=== PATIENT | male | born 1955 | race Caucasian/White ===

== ENCOUNTER 2017-06-22 15:59 | Inpatient (IN) | payer OTHER ==
[~2017-06-22] VITALS: Ht 177.8 cm; Wt 82.0 kg
[~2017-06-22 15:59] MED LIST: CARAS PO; GABA300C16 PO; GLIM2TAB PO; LACT20SO12 PO; METF1000 PO; METO10TA96 PO; OMEP20CA16 PO; PROP10TA6 PO
[2017-06-22] MEDS ORDERED: NITROGLYCERIN 2% 1 GM OINT PKT TD STA (16:10)
[2017-06-22 16:15] VITALS: Ht 177.8 cm; Wt 82.0 kg
[2017-06-22] MEDS ORDERED: NITROGLYCERIN (SL) 0.4 MG TAB SL PRN ×2 (16:30→18:00)
[2017-06-22 16:46] LABS: HEMATOCRIT 36.4 % (42.0-52.0); HEMOGLOBIN 12.6 g/dl (14.0-18.0); MEAN CORPUSCULAR HEMOGLOBIN 32.3 pg (29.0-33.0); MEAN CORPUSCULAR HGB CONC 34.6 g/dl (32.0-37.0); MEAN CORPUSCULAR VOLUME 93.3 fl (82.0-101.0); MEAN PLATELET VOLUME 9.5 fl (7.4-10.4); PLATELET COUNT 127 10^3/UL (140-415); WHITE BLOOD COUNT 2.9 10^3/ul (4.8-10.8)
--- NOTE | 2017-06-22 16:56 | RADRPT ---
PROCEDURE: XR Chest. CLINICAL INDICATION: chest pain TECHNIQUE: Single frontal view of the chest was obtained COMPARISON: 10/02/2016 FINDINGS: The heart and mediastinum are within normal limits. The lungs are clear. There is no pleural effusion or pneumothorax. RPTAT: AA IMPRESSION: No acute disease. .Александр Lynch MD, MD Date Time Electronically viewed and signed by .Александр Lynch MD, on 06/22/2017 16:56 .S/
[2017-06-22] MEDS ORDERED: ACETAMINOPHEN 325 MG TAB PO PRN (17:00)
[2017-06-22] MEDS ORDERED: ONDANSETRON 4 MG INJ IV PRN ×2 (17:00→18:00)
[2017-06-22 17:05] LABS: INR 1.21; PROTIME 15.4 Sec (12.2-14.2); PT RATIO 1.2
[2017-06-22 17:06] LABS: PARTIAL THROMBOPLASTIN TIME 30.9 Sec (25.0-35.0)
[2017-06-22 17:11] LABS: ANION GAP 22 (8-16); BLOOD UREA NITROGEN 4 mg/dl (7-20); CALCIUM 9.1 mg/dl (8.4-10.2); CARBON DIOXIDE 25 mmol/L (21-31); CHLORIDE 93 mmol/L (97-110); CREATININE 0.64 mg/dl (0.61-1.24); GLUCOSE 173 mg/dl (70-220); POTASSIUM 3.7 mmol/L (3.5-5.1); SODIUM 136 mmol/L (135-144)
[2017-06-22 17:26] LABS: TROPONIN-I < 0.012 ng/ml (0.00-0.12)
[2017-06-22 17:51] LABS: EOSINOPHILS # 0.1 10^3/ul (0.0-0.5); LYMPHOCYTES # 1.1 10^3/ul (0.8-2.9); MONOCYTE # 0.1 10^3/ul (0.3-0.9); NEUTROPHIL # 1.6 10^3/ul (1.6-7.5)
[2017-06-22] MEDS ORDERED: GABA-526 PO (17:55)
[2017-06-22] MEDS ORDERED: GLIM4TAB PO (17:56)
[2017-06-22] MEDS ORDERED: morphine 2 MG INJ IV PRN (18:00)
[2017-06-22] MEDS: INSULIN ASPART [NOVOLOG] 3 ML PEN SC SCH ×3 (18:00→21:00)
[2017-06-22] MEDS ORDERED: BISACODYL (EC) 5 MG TAB PO PRN (18:00)
[2017-06-22] MEDS ORDERED: HYDROCODONE/APAP (5/325) TAB PO PRN (18:00)
[2017-06-22] MEDS ORDERED: NACL 0.9% 3 ML SYG IV SCH (18:00)
[2017-06-22] MEDS ORDERED: MAGNESIUM HYDROXIDE 30ML CUP PO PRN (18:00)
[2017-06-22] MEDS ORDERED: SOD CHLORIDE 0.9% 1,000 ML IV STA (18:02)
--- NOTE | 2017-06-22 18:02 | HP ---
Date/Time of Note Date/Time of Note DATE: 06/22/17 TIME: 18:01 Assessment/Plan VTE Prophylaxis VTE Prophylaxis Intervention: SCD's Lines/Catheters IV C[facility]ter Type [facility]from [facility] Peripheral IV Assessment/Plan Chief Complaint/Hosp Course 1. Chest pain. To rule out acute coronary syndrome. The patient has multiple comorbidities including diabetes mellitus. The patient will be ruled out for any underlying acute coronary syndrome with serial troponins and 2D echocardiogram. A cardiology consult will be obtained. The patient will be started on low-dose aspirin as long as the patient has no significant thrombocytopenia. 2. Type 2 diabetes mellitus. The patient's metformin will be put on hold. The patient will be started on sliding scale insulin along with basal insulin and pre-meal insulin. Hemoglobin A1c will be obtained to evaluate the blood glucose control the past few weeks. 3. Liver cirrhosis. Patient will be continued on his hepatic medications. The patient's lactulose will be put on hold. A serum ammonia level will be obtained. 4. Pancytopenia. Most probably secondary to underlying liver cirrhosis. Will monitor. Plan: The patient will be admitted to inpatient telemetry floor. The patient will be started on a carbohydrate controlled diet. The patient will be started on DVT prophylaxis and gastrointestinal prophylaxis. The patient will remain a full code. Activities will be as tolerated. The rest of the patient's management will be based on the clinical course, inputs from consultants, and the results of diagnostic studies. Based on the patient's clinical presentation, he most probably requires at least one midnight's stay for further management and evaluation of his clinical presentation. The case and management of this patient was fully discussed with Dr. Dunn. Problems: HPI/ROS Admit Date/Time Admit Date/Time Hx of Present Illness Reason for admission: Chest pain Consultants 1. Colby Acosta DO, Cardiology. This is a 61-year-old male with past medical history of type 2 diabetes mellitus, liver cirrhosis, hepatocellular carcinoma, and EtOH abuse was brought to the emergency room with chief complaint of chest pain. The patient verbalized the chest pain as waxing and waning. The patient denied any radiation of the chest pain. The patient verbalized associated dyspnea. The patient verbalized nausea associated with the chest pain, but denied any vomiting. The patient denied any prior history of heart disease. The patient denied any cough, fever, chills, abdominal pain, diarrhea, dysuria, hematuria. In the emergency room, the patient's 12-lead EKG showed normal sinus rhythm. The patient's chest x-ray showed no acute cardiopulmonary abnormalities. Patient was noticed to have minimal thrombocytopenia along with anemia and leukocytopenia. The patient was treated with transdermal nitroglycerin in the emergency room. ROS Constitutional: no complaints Eyes: no complaints ENT: no complaints Respiratory: shortness of breath Cardiovascular: chest pain Gastrointestinal: no complaints Genitourinary: no complaints Musculoskeletal: no complaints Skin: no complaints Neurologic: no complaints Endocrine: no complaints Lymphatic: no complaints Psychological: no complaints Immunologic: no complaints PMH/Family/Social Past Medical History Medical History: diabetes, other (Heapatocellular carcinoma, liver cirrhosis) Past Surgical History Past Surgical Hx: other (Laparotomy for Bleeding ulcer) Social History The patient continues to drink despite his underlying liver cirrhosis. Alcohol Use: other (Everyday) Smoking Status: Never smoker Exam/Review of Systems Vital Signs Vitals Vital Signs Date Time Temp Pulse Resp B/P Pulse Ox O2 Delivery O2 Flow Rate FiO2 06/22/17 16:57 98.5 96 18 114/62 94 Room Air 06/22/17 16:41 0 Exam Exam General: Adequately build 61 year-old male lying in bed in no apparent distress. HEENT: Normocephalic, atraumatic. Eyes: Anicteric sclerae, conjunctivae clear. ENT: Nasal septum midline, oral mucosa moist. Neck supple, no JVD noticed. Respiratory: Bilaterally clear breath sounds. No use of accessory muscles of respiration. No adventitious breath sounds. Cardiovascular: S1, S2 heard. No murmurs or gallops. Abdomen: Soft, nontender, and nondistended. Bowel sounds positive in all 4 quadrants. Midline surgical scar. Genitourinary: Deferred. Extremities: No cyanosis, no clubbing, no edema. Peripheral pulses palpable. Neurologic: Cranial nerves II through XII grossly intact. The patient is awake, alert, and oriented. Skin: Normal skin turgor. No skin rashes. Labs Result Diagram: 06/22/17 1640 06/22/17 1640 Medications Medications Current Medications Ondansetron HCl (Zofran Inj) 4 mg Q6H PRN IV NAUSEA AND/OR VOMITING; Start at 18:00 Aspirin (Aspirin) 81 mg DAILY PO ; Start 06/23/17 at 09:00 Nitroglycerin (Nitroglycerin (Sl Tab) 0.4 Mg) 1 tab Q5M PRN SL CHEST PAIN; Start 06/22/17 at 18:00 Acetaminophen/ Hydrocodone Bitart ([place] (5/325)) 1 tab Q6H PRN PO PAIN LEVEL 4 -6; Start 06/22/17 at 18:00 Morphine Sulfate (morphine) 2 mg Q4H PRN IV PAIN LEVEL 7-10; Start 06/22/17 at 18:00 Magnesium Hydroxide (Milk Of Mag) 30 ml DAILY PRN PO CONSTIPATION; Start at 18:00 Bisacodyl (Dulcolax) 5 mg DAILY PRN PO CONSTIPATION; Start 06/22/17 at 18:00 Famotidine (Pepcid) 20 mg Q12 PO ; Start 06/22/17 at 21:00 Procedures Procedures CXR IMPRESSION: No acute disease. Twelve-Lead EKG Normal sinus rhythm. MANAN PAGE NP Jun 22, 2017 18:02
[2017-06-22] MEDS ORDERED: GLUCOSE GEL 15 GRAM TUBE PO PRN ×2 (18:30)
[2017-06-22] MEDS ORDERED: DEXTROSE 50% 50 ML SYRINGE IV PRN ×2 (18:30)
[2017-06-22] MEDS ORDERED: GLUCOSE GEL 15 GRAM TUBE BUCCAL PRN (18:30)
[2017-06-22] MEDS ORDERED: GLUCAGON 1 MG INJ IM PRN (18:30)
[2017-06-22 18:38] VITALS: TEMP 98.6
[2017-06-22] MEDS ORDERED: NEXAVAR 200 MG PO (18:41)
--- NOTE | 2017-06-22 18:55 | ERA ---
ER Documentation Chief Complaint Date/Time DATE: 06/22/17 TIME: 18:53 Chief Complaint CP TODAY WHILE WALKING NON RADIATINGNO N/V. NON TRAUMATIC WITH MILD SOB HPI Patient is a 61-year-old male with hypertension and diabetes who presents with chest pain. He went for a walk and when he got back from his walk he had 8 out of 10 chest pain and shortness of breath. He was brought in by ambulance. He was given aspirin and nitroglycerin. He has never had this before. He does admit to a cough. He has no vomiting or diarrhea. Upon review of old medical records the patient has multiple visits to the ER for various complaints. ROS All systems reviewed and are negative except as per history of present illness. Medications Home Meds Reported Medications [Nexavar 200MG] No Conflict Check, 400 MG PO Q OTHER DAY 06/22/17 Glimepiride* (Glimepiride*) 4 Mg Tablet, 4 MG PO WITH BREAKFAST, TAB 06/22/17 Gabapentin* (Gabapentin*) 600 Mg Tablet, 600 MG PO TID, #90 TAB 06/22/17 Propranolol Hcl* (Propranolol Hcl*) 10 Mg Tablet, 10 MG PO BID, TAB 09/27/16 Omeprazole* (Omeprazole*) 20 Mg Capsule.dr, 20 MG PO DAILY, #60 CAP 09/27/16 Metformin Hcl* (Metformin Hcl*) 1,000 Mg Tablet, 1000 MG PO WITH BREAKFAST DINNE , #60 TAB 09/27/16 Discontinued Reported Medications Glimepiride* (Glimepiride*) 2 Mg Tablet, 2 MG PO WITH BREAKFAST, TAB 09/27/16 Gabapentin* (Gabapentin*) 300 Mg Capsule, 300 MG PO QHS, #60 CAP 09/27/16 Discontinued Scripts Metoclopramide Hcl* (Metoclopramide Hcl*) 10 Mg Tablet, 5 MG PO TID for 30 Days , TAB 2 Refills Prov:IVON OJEDA S. 10/04/16 Sucralfate* (Carafate*) 1 Gm/10 Ml Susp, 1 GM PO AC MEALS AND BEDTIME for 30 Days, #90 2 Refills Prov:RAHAMZAH,IVON S. 10/04/16 Lactulose* (Cephulac*) 20 Gm/30 Ml Soln, 20 GM PO Q8 for 30 Days, #1 3 Refills Prov:RAHI,IVON S. 10/04/16 Allergies Allergies: Coded Allergies: No Known Allergy (Verified , 06/22/17) PMhx/Soc History of Surgery: Yes (abdominal surgery 10 years ago) Anesthesia Reaction: No Hx Neurological Disorder: No Hx Respiratory Disorders: No Hx Cardiac Disorders: Yes (htn) Hx Psychiatric Problems: No Hx Miscellaneous Medical Probl: Yes (cancer of liver, DM) Hx Alcohol Use: Yes (2beers/daily 2 beers today 06/22) Hx Substance Use: No Hx Tobacco Use: No Smoking Status: Never smoker FmHx Family History: No coronary disease Physical Exam Vitals Vital Signs Date Time Temp Pulse Resp B/P Pulse Ox O2 Delivery O2 Flow Rate FiO2 06/22/17 18:38 98.6 87 13 131/70 100 Room Air 06/22/17 18:10 114/67 06/22/17 18:07 102 18 89/56 96 Room Air 06/22/17 16:57 98.5 96 18 114/62 94 Room Air 06/22/17 16:41 0 06/22/17 16:15 98.5 91 18 114/71 96 Physical Exam Const: No acute distress Head: Atraumatic Eyes: Normal Conjunctiva ENT: Normal External Ears, Nose and Mouth. Neck: Full range of motion..~ No meningismus. Resp: Clear to auscultation bilaterally Cardio: Regular rate and rhythm, no murmurs Abd: Soft, non tender, non distended. Normal bowel sounds Skin: No petechiae or rashes Back: No midline or flank tenderness Ext: No cyanosis, or edema Neur: Awake and alert Psych: Normal Mood and Affect Result Diagram: 06/22/17 1640 06/22/17 1640 Results 24 hrs Laboratory Tests Test 06/22/17 16:40 White Blood Count 2.910^3/ul Red Blood Count 3.9010^6/ul Hemoglobin 12.6g/dl Hematocrit 36.4% Mean Corpuscular Volume 93.3fl Mean Corpuscular Hemoglobin 32.3pg Mean Corpuscular Hemoglobin Concent 34.6g/dl Red Cell Distribution Width 13.0% Platelet Count 97100^3/UL Mean Platelet Volume 9.5fl Neutrophils % 54.0% Lymphocytes % 38.0% Monocytes % 5.0% Eosinophils % 3.0% Nucleated Red Blood Cells % 0.0/100WBC Neutrophils # 1.610^3/ul Lymphocytes # 1.110^3/ul Monocytes # 0.110^3/ul Eosinophils # 0.110^3/ul Prothrombin Time 15.4Sec Prothrombin Time Ratio 1.2 INR International Normalized Ratio 1.21 Activated Partial Thromboplast Time 30.9Sec Sodium Level 136mmol/L Potassium Level 3.7mmol/L Chloride Level 93mmol/L Carbon Dioxide Level 25mmol/L Anion Gap 22 Blood Urea Nitrogen 4mg/dl Creatinine 0.64mg/dl Glucose Level 173mg/dl Calcium Level 9.1mg/dl Troponin I < 0.012ng/ml Current Medications Medications (Trade) Dose Ordered Sig/Nilo Route PRN Reason Start Time Stop Time Status Last Admin Dose Admin Nitroglycerin (Nitroglycerin 2% Oint) 1 inch ONCE STAT TD 06/22/17 16:10 06/22/17 16:11 DC 06/22/17 16:55 Nitroglycerin (Nitroglycerin (Sl Tab) 0.4 Mg) 1 tab Q5M UP TO 3 DOSES PRN SL CHEST PAIN 06/22/17 16:30 06/22/17 18:03 DC 06/22/17 16:55 Ondansetron HCl (Zofran Inj) 4 mg ER BRIDGE PRN IV NAUSEA AND/OR VOMITING 06/22/17 17:00 06/22/17 18:03 DC Acetaminophen (Tylenol Tab) 650 mg ER BRIDGE PRN PO MILD PAIN/FEVER 06/22/17 17:00 06/23/17 16:59 IV Flush (NS 3 ml) 3 ml PER PROTOCOL IV 06/22/17 18:00 Ondansetron HCl (Zofran Inj) 4 mg Q6H PRN IV NAUSEA AND/OR VOMITING 06/22/17 18:00 Aspirin (Aspirin) 81 mg DAILY PO 06/23/17 09:00 Nitroglycerin (Nitroglycerin (Sl Tab) 0.4 Mg) 1 tab Q5M PRN SL CHEST PAIN 06/22/17 18:00 Acetaminophen/ Hydrocodone Bitart ([place] (5/325)) 1 tab Q6H PRN PO PAIN LEVEL 4-6 06/22/17 18:00 Morphine Sulfate (morphine) 2 mg Q4H PRN IV PAIN LEVEL 7-10 06/22/17 18:00 Magnesium Hydroxide (Milk Of Mag) 30 ml DAILY PRN PO CONSTIPATION 06/22/17 18:00 Bisacodyl (Dulcolax) 5 mg DAILY PRN PO CONSTIPATION 06/22/17 18:00 Famotidine (Pepcid) 20 mg Q12 PO 06/22/17 21:00 Miscellaneous Information (* Miscellaneous Pharmacy Order) Discontinue current oral sulfonylur... ONCE ONCE XX 06/22/17 18:00 06/22/17 18:06 DC Diagnostic Test (Pha) (Accu-Chek) 1 ea 02 XX 06/23/17 02:00 Insulin Glargine (Lantus) 16 unit DAILY@08 [place] 06/23/17 08:00 Insulin Aspart (Novolog Insulin Pen) 5 unit WITH MEALS [place] 06/22/17 18:00 Miscellaneous Information (* Miscellaneous Pharmacy Order) HYPOGLYCEMIA PROTOCOL w... ONCE ONCE XX 06/22/17 18:00 06/22/17 18:06 DC Insulin Aspart (Novolog Insulin Pen) NOVOLOG *MILD* ALGORITHM WITH MEALS BEDTIME [place] 06/22/17 18:00 Miscellaneous Information (* Miscellaneous Pharmacy Order) Discontinue all previ... ONCE ONCE XX 06/22/17 18:00 06/22/17 18:06 DC Gabapentin (Neurontin) 600 mg TID PO 06/22/17 21:00 Propranolol HCl 10 mg 10 mg BID PO 06/22/17 21:00 Sodium Chloride (NS) 1,000 ml @ 1,000 mls/hr Q1H STAT IV 06/22/17 18:02 06/22/17 19:01 06/22/17 18:12 Miscellaneous Information 1 ea NOTE XX 06/22/17 18:30 Glucose (Glutose) 15 gm Q15M PRN PO DECREASED GLUCOSE 06/22/17 18:30 Glucose (Glutose) 22.5 gm Q15M PRN PO DECREASED GLUCOSE 06/22/17 18:30 Dextrose (D50w Syringe) 25 ml Q15M PRN IV DECREASED GLUCOSE 06/22/17 18:30 Dextrose (D50w Syringe) 50 ml Q15M PRN IV DECREASED GLUCOSE 06/22/17 18:30 Glucagon (Glucagen) 1 mg Q15M PRN IM DECREASED GLUCOSE 06/22/17 18:30 Glucose (Glutose) 15 gm Q15M PRN BUCCAL DECREASED GLUCOSE 06/22/17 18:30 Procedures/MDM EKG read by me: Rate/Rhythm: Regular rate and rhythm at a rate of 91 Intervals: Normal Impression: No evidence of ischemia or arrhythmia Chest x-ray negative per radiology. Patient is a 61-year-old male with cardiac risk factors who presents with acute chest pain and shortness of breath. I am concerned for potential acute coronary syndrome. I doubt pneumonia, pneumothorax, pulmonary embolism, or aortic dissection. I believe the patient should be admitted for further workup for acute coronary syndrome. The patient will be admitted to a telemetry bed. I spoke with Dr. Dunn from the panel team for admission and the patient was given aspirin nitroglycerin empirically. Departure Diagnosis: Primary Impression: Chest pain Qualified Code: R07.9 - Chest pain, unspecified type Condition: BIJU Mohamud MD Jun 22, 2017 18:55
[2017-06-22 20:00] VITALS: PULSE 85
[2017-06-22] MEDS: FAMOTIDINE 20 MG TAB PO SCH (21:00)
[2017-06-22] MEDS: GABAPENTIN 300 MG CAP PO SCH (21:00)
[2017-06-22] MEDS: PROPRANOLOL 10 MG TAB PO SCH (21:00)
--- NOTE | 2017-06-22 23:04 | CONS ---
Date/Time of Note Date/Time of Note DATE: 06/22/17 TIME: 22:58 Assessment/Plan Assessment/Plan Additional Assessment/Plan Chest pain Hypertension Diabetes Alcohol use Liver cirrhosis as per history with hepatocellular carcinoma Thrombocytopenia -Patient with chest discomfort occurred at rest denies exertional symptoms. Initial ECG and first set of cardiac enzymes are negative. Would obtain serial cardiac enzymes, continue telemetry monitoring, echocardiogram pending. Consider concomitant GI evaluation given history. Consultation Date/Type/Reason Admit Date/Time Type of Consultation: cv Reason for Consultation Chest pain Hx of Present Illness This is a 61-year-old male with past medical history of hypertension, diabetes, alcohol use who presents with symptoms of chest pain. Symptoms began late this morning. Patient states he drank 2 beers earlier this morning. Sometime later , he developed chest discomfort bilateral shoulders and mid chest. Pain was aching like. He did feel nauseous during this episode. He denies shortness of breath or dizziness. There was some intermittent palpitations. Because of the above symptoms, he became concerned and came to the emergency room. He denies further symptoms since admission. He denies exertional chest pain, shortness of breath, dizziness or lightheadedness. He does complain of intermittent abdominal pain which has been long-standing. 12 point review of systems was performed with all pertinent positives and negatives mentioned above and all else is negative Eyes: no complaints ENT: no complaints Respiratory: shortness of breath Cardiovascular: chest pain Gastrointestinal: no complaints Genitourinary: no complaints Musculoskeletal: no complaints Skin: no complaints Neurologic: no complaints Lymphatic: no complaints Psychological: no complaints Immunologic: no complaints Past Medical History Medical History: diabetes, hypertension, other (Heapatocellular carcinoma, liver cirrhosis) Past Surgical History Past Surgical Hx: other (Laparotomy for Bleeding ulcer) Family History Significant Family History: no pertinent family hx Social History Alcohol Use: other (Everyday) Smoking Status: Never smoker Drug Use: none Exam/Review of Systems Vital Signs Vitals Vital Signs Date Time Temp Pulse Resp B/P Pulse Ox O2 Delivery O2 Flow Rate FiO2 06/22/17 20:00 85 06/22/17 18:38 98.6 13 131/70 100 Room Air 06/22/17 16:41 0 Exam No apparent distress Constitutional: alert, oriented Head: normocephalic Respiratory: other (Coarse breath sounds bilaterally, no wheezing) Cardiovascular: other (S1-S2), regular rate and rhythm Gastrointestinal: bowel sounds, non-tender, other (Guarding), soft Extremities: other (No edema) Results Result Diagram: 06/22/17 1640 06/22/17 1640 Results 24 hrs Laboratory Tests Test 06/22/17 16:40 06/22/17 21:42 White Blood Count 2.9 #L Red Blood Count 3.90 L Hemoglobin 12.6 L Hematocrit 36.4 L Mean Corpuscular Volume 93.3 Mean Corpuscular Hemoglobin 32.3 Mean Corpuscular Hemoglobin Concent 34.6 Red Cell Distribution Width 13.0 Platelet Count 127 L Mean Platelet Volume 9.5 Neutrophils % 54.0 Lymphocytes % 38.0 Monocytes % 5.0 Eosinophils % 3.0 Nucleated Red Blood Cells % 0.0 Neutrophils # 1.6 Lymphocytes # 1.1 Monocytes # 0.1 L Eosinophils # 0.1 Prothrombin Time 15.4 H Prothrombin Time Ratio 1.2 INR International Normalized Ratio 1.21 Activated Partial Thromboplast Time 30.9 Sodium Level 136 Potassium Level 3.7 Chloride Level 93 L Carbon Dioxide Level 25 Anion Gap 22 H Blood Urea Nitrogen 4 L Creatinine 0.64 Glucose Level 173 Hemoglobin A1c 6.0 H Calcium Level 9.1 Troponin I < 0.012 Vitamin D 1,25-Dihydroxy 43.6 Thyroid Stimulating Hormone (TSH) 1.210 Free Thyroxine 1.27 Bedside Glucose 101 Medications Medications Current Medications Ondansetron HCl (Zofran Inj) 4 mg Q6H PRN IV NAUSEA AND/OR VOMITING Last administered on 06/22/17t 21:43; Admin Dose 4 MG; Start 06/22/17 at 18:00 Aspirin (Aspirin) 81 mg DAILY PO ; Start 06/23/17 at 09:00 Nitroglycerin (Nitroglycerin (Sl Tab) 0.4 Mg) 1 tab Q5M PRN SL CHEST PAIN; Start 06/22/17 at 18:00 Acetaminophen/ Hydrocodone Bitart ([place] (5/325)) 1 tab Q6H PRN PO PAIN LEVEL 4 -6; Start 06/22/17 at 18:00 Morphine Sulfate (morphine) 2 mg Q4H PRN IV PAIN LEVEL 7-10; Start 06/22/17 at 18:00 Magnesium Hydroxide (Milk Of Mag) 30 ml DAILY PRN PO CONSTIPATION; Start at 18:00 Bisacodyl (Dulcolax) 5 mg DAILY PRN PO CONSTIPATION; Start 06/22/17 at 18:00 Famotidine (Pepcid) 20 mg Q12 PO ; Start 06/22/17 at 21:00 Diagnostic Test (Pha) (Accu-Chek) 1 ea 02 XX ; Start 06/23/17 at 02:00 Insulin Glargine (Lantus) 16 unit DAILY@08 [place] ; Start 06/23/17 at 08:00 Gabapentin (Neurontin) 600 mg TID PO ; Start 06/22/17 at 21:00 Propranolol HCl (Inderal) 10 mg BID PO ; Start 06/22/17 at 21:00 Miscellaneous Information 1 ea NOTE XX ; Start 06/22/17 at 18:30 Glucose (Glutose) 15 gm Q15M PRN PO DECREASED GLUCOSE; Start 06/22/17 at 18:30 Glucose (Glutose) 22.5 gm Q15M PRN PO DECREASED GLUCOSE; Start 06/22/17 at 18: 30 Dextrose (D50w Syringe) 25 ml Q15M PRN IV DECREASED GLUCOSE; Start 06/22/17 at 18:30 Dextrose (D50w Syringe) 50 ml Q15M PRN IV DECREASED GLUCOSE; Start 06/22/17 at 18:30 Glucagon (Glucagen) 1 mg Q15M PRN IM DECREASED GLUCOSE; Start 06/22/17 at 18:30 Glucose (Glutose) 15 gm Q15M PRN BUCCAL DECREASED GLUCOSE; Start 06/22/17 at 18 :30 Procedures Procedures ECG demonstrates sinus rhythm, normal QRS duration, no significant ischemic ST abnormalities Colby Acosta DO Jun 22, 2017 23:04
[2017-06-22 23:35] LABS: CREATINE KINASE 103 IU/L (23-200)
[2017-06-22 23:46] LABS: CK-MB 4.09 ng/ml (0.0-2.4)
[2017-06-23] VITALS (10 sets, daily range): BP systolic 125–148; BP diastolic 68–82; PULSE 71–85; RESP 18–80
[2017-06-23 00:10] LABS: TROPONIN-I < 0.012 ng/ml (0.00-0.12)
[2017-06-23] MEDS ORDERED: ACCU-CHEK XX SCH (02:00)
[2017-06-23] MEDS: INSULIN ASPART [NOVOLOG] 3 ML PEN SC SCH ×6 (07:55→17:41)
[2017-06-23 07:58] LABS: ABNORMAL IP MESSAGE 1; BASOPHILS % 0.5 % (0.0-2.0); EOSINOPHILS # 0.1 10^3/ul (0.0-0.5); EOSINOPHILS % 2.5 % (0.0-7.0); HEMATOCRIT 40.7 % (42.0-52.0); HEMOGLOBIN 13.7 g/dl (14.0-18.0); LYMPHOCYTES # 0.5 10^3/ul (0.8-2.9); LYMPHOCYTES % 26.1 % (15.0-51.0); MEAN CORPUSCULAR HEMOGLOBIN 31.2 pg (29.0-33.0); MEAN CORPUSCULAR HGB CONC 33.7 g/dl (32.0-37.0); MEAN CORPUSCULAR VOLUME 92.7 fl (82.0-101.0); MEAN PLATELET VOLUME 10.1 fl (7.4-10.4); MONOCYTE # 0.3 10^3/ul (0.3-0.9); MONOCYTES % 14.6 % (0.0-11.0); NEUTROPHIL # 1.1 10^3/ul (1.6-7.5); NEUTROPHILS % 56.3 % (39.0-77.0); PLATELET COUNT 135 10^3/UL (140-415); POSITIVE DIFF @See below; RED BLOOD COUNT 4.39 10^6/ul (4.70-6.10); RED CELL DISTRIBUTION WIDTH 13.2 % (11.5-14.5)
[2017-06-23] MEDS ORDERED: INSULIN GLARGINE [LANtus] 3 ML PEN SC SCH (08:00)
[2017-06-23] MEDS: FAMOTIDINE 20 MG TAB PO SCH (08:16)
[2017-06-23] MEDS: PROPRANOLOL 10 MG TAB PO SCH (08:17)
[2017-06-23] MEDS: GABAPENTIN 300 MG CAP PO SCH ×2 (08:17→15:05)
[2017-06-23 08:19] LABS: INR 1.13; PROTIME 14.5 Sec (12.2-14.2); PT RATIO 1.1
[2017-06-23 08:20] LABS: PARTIAL THROMBOPLASTIN TIME 30.9 Sec (25.0-35.0)
[2017-06-23 08:53] LABS: CHOL/HDL RATIO 3.5 RATIO
[2017-06-23 08:56] LABS: ALBUMIN 3.8 g/dl (3.3-4.9); ALBUMIN/GLOBULIN RATIO 0.88; BILIRUBIN,INDIRECT 0.8 mg/dl (0-1.1); BILIRUBIN,TOTAL 0.8 mg/dl (0.2-1.3); CALCIUM 9.3 mg/dl (8.4-10.2); CREATININE 0.52 mg/dl (0.61-1.24); POTASSIUM 4.1 mmol/L (3.5-5.1); TOTAL PROTEIN 8.1 g/dl (6.1-8.1)
[2017-06-23] MEDS ORDERED: ASPIRIN 81 MG TAB PO SCH (09:00)
[2017-06-23 09:02] LABS: CREATINE KINASE 90 IU/L (23-200)
[2017-06-23 09:08] LABS: CK-MB 4.65 ng/ml (0.0-2.4); TROPONIN-I < 0.012 ng/ml (0.00-0.12)
[2017-06-23 09:25] LABS: MAGNESIUM 1.6 mg/dl (1.7-2.5); PHOSPHORUS 3.5 mg/dl (2.5-4.9)
[2017-06-23 09:39] LABS: BASOPHILS % (M) 1 % (0-2); EOSINOPHILS % (M) 3 % (0-7); GIANT THROMBO% (M) 3 % (0-0); MONOCYTES % (M) 19 % (0-11); POLYCHROMASIA 2+ (0-0)
[2017-06-23] MEDS ORDERED: MAGNESIUM SULFATE 2 GM/50 ML 50 ML IVPB ONE (10:00)
[2017-06-23] MEDS: LACTULOSE 30ML CUP PO SCH ×2 (10:09→15:05)
--- NOTE | 2017-06-23 11:04 | RADRPT ---
Echocardiogram Report Patient Name: RACHEL HILARIO Gender: Male Date: 1955 Study Date: 23-Jun-2017 Picture Engraver: Tanya BLAKE RDCS Location: [id number] Ref. Physician: MANAN PAGE Quality: Good Procedures: Transthoracic echocardiogram with complete 2D, M-Mode, and doppler examination. Indications: Evaluate Left Ventricular function. 2D/M Mode Doppler Measurement Value Normal Ranges Measurement Value Normal Ranges LVIDd 2D 4.1 3.5 - 5.6 cm [place] Vmax 2.0 cm2 LVIDs 2D 1.8 2.1 - 4.1 cm [place] VTI 2.0 cm2 LVPWd 2D 1.2 0.6 - 1.1 cm AV Peak Sanchez 1.2 m/sec IVSd 2D 1.2 0.6 - 1.1 cm AV Peak PG 6.0 mmHg AoR Diam 2D 3.0 2.0 - 3.7 cm LVOT Peak Sanchez 0.7 m/sec EDV 2D 72.6 cm3 LVOT Peak PG 2.2 mmHg ESV 2D 5.8 cm3 MV E Peak Sanchez 0.9 m/sec LA Dimen 2D 3.0 2.3 - 4.0 cm MV A Peak Sanchez 1.0 m/sec LVOT Diam 2.1 cm MV E/A 0.9 MV Decel Time 186 msec MV Decel [place] 5 MV E/A 0.9 TR Peak Sanchez 2.8 m/sec TR Peak PG 46.2 mmHg RVSP 54.2 mmHg Findings Left Ventricle: Normal left ventricular systolic function. Normal left ventricular cavity size. Mild concentric left ventricular hypertrophy. Ejection fraction is visually estimated at 65 %. Tissue Doppler/Mitral Doppler indices are consistent with impaired relaxation (Stage I diastolic dysfunction). Right Ventricle: Normal right ventricular size. Normal right ventricular systolic function. Left Atrium: The left atrium is normal in size. Right Atrium: The right atrium is normal in size. Mitral Valve: Normal appearance and function of the mitral valve with trace physiologic regurgitation. Trace mitral regurgitation. Aortic Valve: Normal appearance of the aortic valve. No significant aortic stenosis or insufficiency. Tricuspid Valve: Normal appearance of the tricuspid valve. There is trace tricuspid regurgitation. Pulmonic Valve: Pulmonic valve not well visualized. Pericardium: Normal pericardium with no significant pericardial effusion. Aorta: Normal aortic root. IVC: The IVC is not well visualized. Conclusions 1.Normal left ventricular systolic function. Normal left ventricular cavity size. Mild concentric left ventricular hypertrophy. Ejection fraction is visually estimated at 65 %. Tissue Doppler/Mitral Doppler indices are consistent with impaired relaxation (Stage I diastolic dysfunction). 2.Normal right ventricular size. Normal right ventricular systolic function. 3.The left atrium is normal in size. 4.The right atrium is normal in size. 5.No significant valvular stenosis or regurgitation seen. 6.Normal pericardium with no significant pericardial effusion. Electronically Signed By: Colby Acosta 23-Jun-2017 11:03:48 -0700 Patient Name: RACHEL HILARIO Study Date: 23-Jun-2017 [id number]
--- NOTE | 2017-06-23 15:22 | PDOCDIS ---
Discharge Instructions DIAGNOSIS Discharge Diagnosis Atypical chest pain. CONDITION Patient Condition: Stable HOME CARE INSTRUCTIONS: Diet Instructions: Low Fat /CholesterolSpecial Diet: Carb controlled FOLLOW UP/APPOINTMENTS Follow-up Plan Gaston Andrea MD Specialty: Internal Medicine Office Address: [address] [place], [place] [id number] Office OTHER ORDERS: Other Orders: 1. Resume home medications. 2. Continue a low-cholesterol, carbohydrate controlled diet. 3. Resume activities as tolerated. 4. Follow-up with your primary care physician in 1 week. If you do not have a primary care physician, please call Dr. Gaston Andrea's office. MANAN PAGE NP Jun 23, 2017 15:22
--- NOTE | 2017-06-23 15:26 | DS ---
Date/Time of Note Date/Time of Note DATE: 06/23/17 TIME: 15:25 Discharge Summary Admission/Discharge Info Admit Date/Time Jun 22, 2017 at 16:42 Discharge Date/Time Discharge Diagnosis 1. Atypical chest pain. 2. Type 2 diabetes mellitus. 3. Liver cirrhosis. 4. Pancytopenia. 5. ETOH abuse. 6. Hepatocellular carcinoma. Patient Condition: Stable Consults Colby Acosta DO, Cardiology. Procedures CXR IMPRESSION: No acute disease. 2D Echocardiogram Conclusions 1. Normal left ventricular systolic function. Normal left ventricular cavity size. Mild concentric left ventricular hypertrophy. Ejection fraction is visually estimated at 65 %. Tissue Doppler/Mitral Doppler indices are consistent with impaired relaxation (Stage I diastolic dysfunction). 2. Normal right ventricular size. Normal right ventricular systolic function. 3. The left atrium is normal in size. 4. The right atrium is normal in size. 5. No significant valvular stenosis or regurgitation seen. 6. Normal pericardium with no significant pericardial effusion. Hx of Present Illness Reason for admission: Chest pain Consultants 1. Colby Acosta DO, Cardiology. This is a 61-year-old male with past medical history of type 2 diabetes mellitus, liver cirrhosis, hepatocellular carcinoma, and EtOH abuse was brought to the emergency room with chief complaint of chest pain. The patient verbalized the chest pain as waxing and waning. The patient denied any radiation of the chest pain. The patient verbalized associated dyspnea. The patient verbalized nausea associated with the chest pain, but denied any vomiting. The patient denied any prior history of heart disease. The patient denied any cough, fever, chills, abdominal pain, diarrhea, dysuria, hematuria. In the emergency room, the patient's 12-lead EKG showed normal sinus rhythm. The patient's chest x-ray showed no acute cardiopulmonary abnormalities. Patient was noticed to have minimal thrombocytopenia along with anemia and leukocytopenia. The patient was treated with transdermal nitroglycerin in the emergency room. Hospital Course The patient was admitted to inpatient telemetry floor. Serial troponins were ordered. A 2D echocardiogram was ordered. Cardiology consult was obtained. The patient's serial troponins remained negative. The patient's 2D echocardiogram showed preserved left ventricular ejection fraction. Patient was ruled out for any underlying acute coronary syndrome the patient's chest pain could have been most probably musculoskeletal in origin. The patient has underlying liver cirrhosis. The patient has no evidence of any decompensation. Patient was continued on his medications including propranolol. Patient's ammonia level was found to be high. The patient was continued on lactulose. The patient continues to be a drinker despite his underlying clinical condition. The patient was advised on importance of quitting the use of alcohol. The patient has a history of hepatocellular carcinoma with details unclear. The patient has no active hepatic issues. Any chronic issues could be managed as outpatient with the patient's primary care physician. The patient was cleared by cardiology to be discharged home. The patient denied any complaints at the time of discharge. Discharge Instructions 1. Resume home medications. 2. Continue a low-cholesterol, carbohydrate controlled diet. 3. Resume activities as tolerated. 4. Follow-up with your primary care physician in 1 week. If you do not have a primary care physician, please call Dr. Gaston Andrea's office. The patient verbalized understanding of his discharge instructions. At this time I would like to thank Dr. Acosta for seeing the patient and providing clinical recommendations. Case discussed with Dr. Dunn [facility] Active Scripts Lactulose* (Cephulac*) 20 Gm/30 Ml Soln, 20 GM PO Q8 for 30 Days, #90 BOT Prov:MANAN PAGE BULL GANG SUPERVISOR 06/23/17 Reported Medications [Nexavar 200MG] No Conflict Check, 400 MG PO Q OTHER DAY 06/22/17 Glimepiride* (Glimepiride*) 4 Mg Tablet, 4 MG PO WITH BREAKFAST, TAB 06/22/17 Gabapentin* (Gabapentin*) 600 Mg Tablet, 600 MG PO TID, #90 TAB 06/22/17 Propranolol Hcl* (Propranolol Hcl*) 10 Mg Tablet, 10 MG PO BID, TAB 09/27/16 Omeprazole* (Omeprazole*) 20 Mg Capsule., 20 MG PO DAILY, #60 CAP 09/27/16 Metformin Hcl* (Metformin Hcl*) 1,000 Mg Tablet, 1000 MG PO WITH BREAKFAST DINNE , #60 TAB 09/27/16 Discontinued Reported Medications Glimepiride* (Glimepiride*) 2 Mg Tablet, 2 MG PO WITH BREAKFAST, TAB 09/27/16 Gabapentin* (Gabapentin*) 300 Mg Capsule, 300 MG PO QHS, #60 CAP 09/27/16 Discontinued Scripts Metoclopramide Hcl* (Metoclopramide Hcl*) 10 Mg Tablet, 5 MG PO TID for 30 Days , TAB 2 Refills Prov:IVON OJEDA S. 10/04/16 Sucralfate* (Carafate*) 1 Gm/10 Ml Susp, 1 GM PO AC MEALS AND BEDTIME for 30 Days, #90 2 Refills Prov:IVON OJEDA S. 10/04/16 Lactulose* (Cephulac*) 20 Gm/30 Ml Soln, 20 GM PO Q8 for 30 Days, #1 3 Refills Prov:IVON OJEDA S. 10/04/16 Follow-up Plan Follow-up with your primary care physician in 1 week. Primary Care Provider Not On Staff Doctor Time spent on discharge: > 30 minutes Pending Labs Laboratory Tests Test 06/22/17 16:40 06/22/17 21:42 06/22/17 22:24 06/23/17 06:46 White Blood Count 2.910^3/ul (4.8-10.8) 2.010^3/ul (4.8-10.8) Red Blood Count 3.9010^6/ul (4.70-6.10) 4.3910^6/ul (4.70-6.10) Hemoglobin 12.6g/dl (14.0-18.0) 13.7g/dl (14.0-18.0) Hematocrit 36.4% (42.0-52.0) 40.7% (42.0-52.0) Mean Corpuscular Volume 93.3fl (82.0-101.0) 92.7fl (82.0-101.0) Mean Corpuscular Hemoglobin 32.3pg (29.0-33.0) 31.2pg (29.0-33.0) Mean Corpuscular Hemoglobin Concent 34.6g/dl (32.0-37.0) 33.7g/dl (32.0-37.0) Red Cell Distribution Width 13.0% (11.5-14.5) 13.2% (11.5-14.5) Platelet Count 85316^3/UL (140-415) 72965^3/UL (140-415) Mean Platelet Volume 9.5fl (7.4-10.4) 10.1fl (7.4-10.4) Neutrophils % 54.0% (39.0-77.0) 56.3% (39.0-77.0) Lymphocytes % 38.0% (15.0-51.0) 26.1% (15.0-51.0) Monocytes % 5.0% (0.0-11.0) 14.6% (0.0-11.0) Eosinophils % 3.0% (0.0-7.0) 2.5% (0.0-7.0) Nucleated Red Blood Cells % 0.0/100WBC (0.0-0.0) 0.0/100WBC (0.0-0.0) Neutrophils # 1.610^3/ul (1.6-7.5) 1.110^3/ul (1.6-7.5) Lymphocytes # 1.110^3/ul (0.8-2.9) 0.510^3/ul (0.8-2.9) Monocytes # 0.110^3/ul (0.3-0.9) 0.310^3/ul (0.3-0.9) Eosinophils # 0.110^3/ul (0.0-0.5) 0.110^3/ul (0.0-0.5) Prothrombin Time 15.4Sec (12.2-14.2) 14.5Sec (12.2-14.2) Prothrombin Time Ratio 1.2 1.1 INR International Normalized Ratio 1.21 1.13 Activated Partial Thromboplast Time 30.9Sec (25.0-35.0) 30.9Sec (25.0-35.0) Sodium Level 136mmol/L (135-144) 142mmol/L (135-144) Potassium Level 3.7mmol/L (3.5-5.1) 4.1mmol/L (3.5-5.1) Chloride Level 93mmol/L (97-110) 99mmol/L (97-110) Carbon Dioxide Level 25mmol/L (21-31) 30mmol/L (21-31) Anion Gap 22 (8-16) 17 (8-16) Blood Urea Nitrogen 4mg/dl (7-20) 5mg/dl (7-20) Creatinine 0.64mg/dl (0.61-1.24) 0.52mg/dl (0.61-1.24) Glucose Level 173mg/dl (70-220) 120mg/dl (70-220) Hemoglobin A1c 6.0% (0-5.9) Calcium Level 9.1mg/dl (8.4-10.2) 9.3mg/dl (8.4-10.2) Troponin I < 0.012ng/ml (0.00-0.12) < 0.012ng/ml (0.00-0.12) < 0.012ng/ml (0.00-0.12) Vitamin D 1,25-Dihydroxy 43.6ng/ml (30-100) Thyroid Stimulating Hormone (TSH) 1.210MIU/L (0.465-4.680) Free Thyroxine 1.27ng/dl (0.78-2.44) Bedside Glucose 101mg/dL (70-220) Creatine Kinase 103IU/L (23-200) 90IU/L (23-200) Creatine Kinase Index 4.0 5.2 Creatinine Kinase MB (Mass) 4.09ng/ml (0.0-2.4) 4.65ng/ml (0.0-2.4) Segmented Neutrophils % (Manual) 54% (39-77) Band Neutrophils % (Manual) 1% (0-4) Lymphocytes % (Manual) 23% (15-51) Monocytes % (Manual) 19% (0-11) Eosinophils % (Manual) 3% (0-7) Basophils % 0.5% (0.0-2.0) Basophils % (Manual) 1% (0-2) Neutrophils # (Manual) 1.110^3/ul (1.7-7.5) Band Neutrophils # 0.010^3/ul (0.0-0.6) Absolute Lymphocytes (Manual) 0.410^3/ul (0.8-2.9) Absolute Monocytes (Manual) 0.310^3/ul (0.3-0.9) Basophils # 0.010^3/ul (0.0-0.1) Basophils # (Manual) 0.010^3/ul (0.0-0.0) Nucleated Red Blood Cells # 0.010^3/ul (0.0-0.0) Smudge Cells % 8% (0-0) Thrombocytosis 3% (0-0) Polychromasia 2+ (0-0) Phosphorus Level 3.5mg/dl (2.5-4.9) Magnesium Level 1.6mg/dl (1.7-2.5) Total Bilirubin 0.8mg/dl (0.2-1.3) Direct Bilirubin 0.00mg/dl (0.00-0.20) Indirect Bilirubin 0.8mg/dl (0-1.1) Aspartate Amino Transf (AST/SGOT) 101IU/L (15-46) Alanine Aminotransferase (ALT/SGPT) 57IU/L (13-69) Alkaline Phosphatase 142IU/L (42-121) Ammonia 50umol/l (9-30) Total Protein 8.1g/dl (6.1-8.1) Albumin 3.8g/dl (3.3-4.9) Globulin 4.30g/dl (1.3-3.2) Albumin/Globulin Ratio 0.88 Triglycerides Level 61mg/dl (0-149) Cholesterol Level 137mg/dl (100-200) LDL Cholesterol, Calculated 86mg/dl HDL Cholesterol 39mg/dl (30-78) Cholesterol/HDL Ratio 3.5RATIO Test 06/23/17 08:14 06/23/17 12:22 Bedside Glucose 125mg/dL (70-220) 114mg/dL (70-220) MANAN PAGE NP Jun 23, 2017 15:26 MANAN PAGE NP Jun 23, 2017 15:26
[2017-06-23] MEDS ORDERED: LACT20SO12 PO (15:29)
== END 2017-06-23 18:31 | disposition home or self-care (01) | DRG 313 ==
LOC: E/R 15:59 → TEL 16:42
PROVIDERS: ADMIT Internal Medicine; ATTEND Internal Medicine
DX: R07.89 Other chest pain (principal); D61.818 Other pancytopenia; C22.0 Liver cell carcinoma; D69.59 Other secondary thrombocytopenia; E11.9 Type 2 diabetes mellitus without complications; K70.30 Alcoholic cirrhosis of liver without ascites; F10.20 Alcohol dependence, uncomplicated; I10 Essential (primary) hypertension; Z79.4 Long term (current) use of insulin; Z79.82 Long term (current) use of aspirin
CPT/HCPCS: 36415; 71010; 80048; 80053; 80061; 82140; 82306; 82550; 82553; 82652; 82962; 83036; 83735; 84100; 84439; 84443; 84484; 85025; 85610; 85730; 93005; 93306; J1815; J2405; J3475; J7030

== ENCOUNTER 2017-07-06 11:03 | Emergency (ER) | payer OTHER ==
[~2017-07-06] VITALS: Wt 69.0 kg
[~2017-07-06 11:03] MED LIST changes: -CARAS PO; +GABA-526 PO; -GABA300C16 PO; -GLIM2TAB PO; +GLIM4TAB PO; -METO10TA96 PO; +NEXAVAR 200 MG PO
[2017-07-06] MEDS ORDERED: HYDROCODONE/APAP (5/325) TAB PO ONE (12:00)
[2017-07-06] MEDS ORDERED: ACETAMINOPHEN 325 MG TAB PO ONE (12:00)
[2017-07-06] MEDS ORDERED: LIDOCAINE 2% (MDV) 20 ML INJ INJ ONE (12:00)
[2017-07-06] MEDS ORDERED: CEPH-443 PO (12:48)
[2017-07-06] MEDS ORDERED: SULF1TAB31 PO (12:48)
[2017-07-06] MEDS ORDERED: ACET500C5 PO (12:48)
--- NOTE | 2017-07-06 12:55 | ERD ---
ER Documentation Chief Complaint Date/Time DATE: 07/06/17 TIME: 12:50 Chief Complaint ABCESS ON RIGHT SUBCLAVIAN HPI 61-year-old male patient with a past medical history of liver cancer, diabetes, hyperlipidemia presents to the ED complaining of a red and painful bump in the right chest region x 1 week. Reports that he has had intermittent fever. Reports that he has not taken any medications or applied any new creams. Denies any chest pain, shortness of breath, abdominal pain, nausea, vomiting, diarrhea. ROS All systems reviewed and are negative except as per history of present illness. Medications Home Meds Active Scripts Acetaminophen* (Tylophen*) 500 Mg Capsule, 1 CAP PO Q6H Y for PAIN AND OR ELEVATED TEMP, #20 CAP Prov:SARA CORBETT PA-C 07/06/17 Cephalexin* (Keflex*) 500 Mg Capsule, 500 MG PO QID for 7 Days, CAP Prov:SARA CORBETT PA-C 07/06/17 Sulfamethoxazole/Trimethoprim* (Bactrim Ds* Tablet) 1 Each Tablet, 1 TAB PO BID for 7 Days, #14 TAB Prov:SARA CORBETT PA-C 07/06/17 Lactulose* (Cephulac*) 20 Gm/30 Ml Soln, 20 GM PO Q8 for 30 Days, #90 BOT Prov:MANAN PAGE NP 06/23/17 Reported Medications [Nexavar 200MG] No Conflict Check, 400 MG PO Q OTHER DAY 06/22/17 Glimepiride* (Glimepiride*) 4 Mg Tablet, 4 MG PO WITH BREAKFAST, TAB 06/22/17 Gabapentin* (Gabapentin*) 600 Mg Tablet, 600 MG PO TID, #90 TAB 06/22/17 Propranolol Hcl* (Propranolol Hcl*) 10 Mg Tablet, 10 MG PO BID, TAB 09/27/16 Omeprazole* (Omeprazole*) 20 Mg Capsule.dr, 20 MG PO DAILY, #60 CAP 09/27/16 Metformin Hcl* (Metformin Hcl*) 1,000 Mg Tablet, 1000 MG PO WITH BREAKFAST DINNE , #60 TAB 09/27/16 Allergies Allergies: Coded Allergies: No Known Allergy (Verified , 07/06/17) PMhx/Soc Medical and Surgical Hx: pt denies Surgical Hx History of Surgery: No Anesthesia Reaction: No Hx Neurological Disorder: No Hx Respiratory Disorders: No Hx Cardiac Disorders: No Hx Psychiatric Problems: No Hx Miscellaneous Medical Probl: Yes (liver CA) Hx Alcohol Use: Yes Hx Substance Use: No Hx Tobacco Use: No Smoking Status: Never smoker Physical Exam Vitals Vital Signs Date Time Temp Pulse Resp B/P Pulse Ox O2 Delivery O2 Flow Rate FiO2 07/06/17 11:05 100.0 102 78 143/72 98 Physical Exam Const: [id number], well-nourished. In no acute distress. Head: Atraumatic, normocephalic Eyes: Normal Conjunctiva without injection. No purulent discharge. PERRL. EOMI ENT: Normal external ear. Ear canal without erythema. Tympanic membrane pearly henderson without effusion or bulging. Nasal canal clear with normal turbinates. Moist oropharynx without tonsillar exudates. Non-erythematous pharynx. Uvula midline. No drooling. No trismus. Neck: Full range of motion. No meningismus. No cervical lymphadenopathy. Resp: Clear to auscultation bilaterally. No wheezing, rhonchi, rales, or crackles. No accessory muscle use. No retractions. Cardio: Regular rate and rhythm. No murmurs, rubs or gallops. Abd: Soft, non tender, non distended. Normal bowel sounds. No palpable masses. No rebound tenderness. No guarding. Skin: No petechiae or rashes. 4 cm indurated abscess with slight fluctuation noted in the center with surrounding erythema. No lymphatic streaking. Tender to palpation of the abscess of the right chest region. Back: No midline tenderness. No CVA tenderness. Ext: No cyanosis, or edema. Neur: Awake and alert. Psych: Normal Mood and Affect Results 24 hrs Current Medications Medications (Trade) Dose Ordered Sig/Nilo Route PRN Reason Start Time Stop Time Status Last Admin Dose Admin Lidocaine (Xylocaine 2% (Mdv) 20 ml) 20 ml ONCE ONCE INJ 07/06/17 12:00 07/06/17 12:01 DC Acetaminophen (Tylenol Tab) 650 mg ONCE ONCE PO 07/06/17 12:00 07/06/17 12:01 Cancel Acetaminophen/ Hydrocodone Bitart (Lawrence (5/325)) 1 tab ONCE ONCE PO 07/06/17 12:00 07/06/17 12:01 DC 07/06/17 12:12 Procedures/MDM 61 year old male patient with a past medical history of liver cancer, diabetes, hyperlipidemia presents to the ED complaining of an abscess in his right chest region. Patient was given Lawrence here in the ED with improvement of his pain. Patient gave consent to perform incision and drainage. 11 blade scalpel used to make a small incision. Abscess Incision and Drainage with irrigation by me: Location: [Right chest region] Anesthesia: [2 cc Local 1% Lidocaine] Technique: [Irrigated. Disrupted loculations w/ instrumentation ] Packing: [None] Complications: [Neurovascularly intact post procedure] Copious purulent discharge drained from the abscess. Low suspicion for sepsis, necrotizing fasciitis, malignancy, atypical NV, cardiac arrhythmia, pneumothorax , pneumonia, pleural effusion, meningococcemia, or other emergent conditions. Keflex and Bactrim was prescribed to patient. Tylenol was prescribed to patient for pain. Instructed patient to return to the ED sooner for any worsening symptoms. Follow up with primary care physician or return to the ED in 2 days for a wound check. Patient's questions were answered. Patient understood and agreed with discharge plan. Departure Diagnosis: Primary Impression: Abscess Condition: Stable Patient Instructions: Abscess, Incision And Drainage Referrals: COMMUNITY CLINICS YOU HAVE RECEIVED A MEDICAL SCREENING EXAM AND THE RESULTS INDICATE THAT YOU DO NOT HAVE A CONDITION THAT REQUIRES URGENT TREATMENT IN THE EMERGENCY DEPARTMENT. FURTHER EVALUATION AND TREATMENT OF YOUR CONDITION CAN WAIT UNTIL YOU ARE SEEN IN YOUR DOCTORS OFFICE WITHIN THE NEXT 1-2 DAYS. IT IS YOUR RESPONSIBILITY TO MAKE AN APPOINTMENT FOR FOLOW-UP CARE. IF YOU HAVE A PRIMARY DOCTOR --you should call your primary doctor and schedule an appointment IF YOU DO NOT HAVE A PRIMARY DOCTOR YOU CAN CALL OUR PHYSICIAN REFERRAL HOTLINE AT IF YOU CAN NOT AFFORD TO SEE A PHYSICIAN YOU CAN CHOSE FROM THE FOLLOWING [facility] CLINICS [facility] [address] [facility] [address] [facility] [facility] [address] [facility] [address] [facility] [address] [facility]. [facility] [address] [facility]. [facility] YOU HAVE RECEIVED A MEDICAL SCREENING EXAM AND THE RESULTS INDICATE THAT YOU DO NOT HAVE A CONDITION THAT REQUIRES URGENT TREATMENT IN THE EMERGENCY DEPARTMENT. FURTHER EVALUATION AND TREATMENT OF YOUR CONDITION CAN WAIT UNTIL YOU ARE SEEN IN YOUR DOCTORS OFFICE WITHIN THE NEXT 1-2 DAYS. IT IS YOUR RESPONSIBILITY TO MAKE AN APPOINTMENT FOR FOLOW-UP CARE. IF YOU HAVE A PRIMARY DOCTOR --you should call your primary doctor and schedule and appointment IF YOU DO NOT HAVE A PRIMARY DOCTOR YOU CAN CALL OUR PHYSICIAN REFERRAL HOTLINE AT . IF YOU CAN NOT AFFORD TO SEE A PHYSICIAN YOU CAN CHOSE FROM THE FOLLOWING [facility] INSTITUTIONS: [facility] [address] [place] [address] [facility] [address] [place] [place] [id number] [place] [address] [address] [place] [address] [facility] URGENT CARE/SPECIALTIES Additional Instructions: WOUND CHECK:CONSULTE A ELLIS MDICO EN 2 carver para norma ELLIS HERIDA. Llame al doctor MAANA y fabian gissel REGINA PARA DENTRO DE 2-3 BARNARD.Dgale a la secretaria que nosotros le instruimos hacer esta regina.Avise o llame si ellis condicin se empeora antes de la regina. Regresa aqui si peor o no mejor. SARA CORBETT PA-C Jul 06, 2017 12:55
[2017-07-06 13:20] VITALS: BP 127/80; PULSE 85; RESP 12; TEMP 98.8
== END 2017-07-06 13:20 | disposition home or self-care (01) ==
LOC: FTE 11:03
DX: L02.213 Cutaneous abscess of chest wall (principal); E11.9 Type 2 diabetes mellitus without complications; Z79.84 Long term (current) use of oral hypoglycemic drugs; Z85.05 Personal history of malignant neoplasm of liver
CPT/HCPCS: 10060; Z7502; Z7610

== ENCOUNTER 2017-09-08 15:16 | Inpatient (IN) | payer OTHER ==
[~2017-09-08] VITALS: Ht 175.3 cm; Wt 68.9 kg
[~2017-09-08 15:16] MED LIST changes: +ACET500C5 PO; +CEPH-443 PO; +SULF1TAB31 PO
[2017-09-08 15:38] VITALS: Ht 175.3 cm; Wt 68.9 kg
[2017-09-08] MEDS ORDERED: SODIUM CHLORIDE 0.9% 1L BAG IV* STA (16:18)
--- NOTE | 2017-09-08 16:42 | RADRPT ---
PROCEDURE: XR Chest. CLINICAL INDICATION: Sepsis . TECHNIQUE: Single frontal chest x-ray. COMPARISON: 10/02/2016 FINDINGS: The lungs are clear of acute infiltrates, edema, effusions, or masses. There are low lung volumes wi th hilar vascular crowding. There is mild bibasilar atelectasis.. The cardiomediastinal silhouette is unremarkable. The osseous structures are intact. IMPRESSION: No acute cardiopulmonary disease. Low lung volumes with mild bibasilar atelectasis. RPTAT: GG .Ambrose Bernal MD, MD Date Time Electronically viewed and signed by .Ambrose Bernal MD, MD on 09/08/2017 16:42 .L/
[2017-09-08] MEDS ORDERED: OCTREOTIDE 50 MCG in SOD CHLORIDE 0.9% 25 ML IVPB STA (16:53)
[2017-09-08] MEDS ORDERED: PANTOPRAZOLE IV 80 MG in SOD CHLORIDE 0.9% 100 ML IV STA (16:53)
[2017-09-08] MEDS ORDERED: PANTOPRAZOLE IV 80 MG in SOD CHLORIDE 0.9% 100 ML IVPB STA (16:53)
[2017-09-08] MEDS ORDERED: ONDANSETRON 4 MG INJ IV STA (16:53)
[2017-09-08] MEDS ORDERED: OCTREOTIDE 500 MCG in SOD CHLORIDE 0.9% 49 ML IV STA (16:53)
[2017-09-08] MEDS ORDERED: HYDROmorphONE 1 MG/ML SYG IV STA (16:53)
[2017-09-08 17:08] LABS: BASOPHILS % 0.4 % (0.0-2.0); EOSINOPHILS % 0.2 % (0.0-7.0); HEMATOCRIT 39.9 % (42.0-52.0); HEMOGLOBIN 13.7 g/dl (14.0-18.0); LYMPHOCYTES # 0.9 10^3/ul (0.8-2.9); LYMPHOCYTES % 18.5 % (15.0-51.0); MEAN CORPUSCULAR HEMOGLOBIN 32.4 pg (29.0-33.0); MEAN CORPUSCULAR HGB CONC 34.3 g/dl (32.0-37.0); MEAN CORPUSCULAR VOLUME 94.3 fl (82.0-101.0); MEAN PLATELET VOLUME 9.7 fl (7.4-10.4); MONOCYTE # 0.8 10^3/ul (0.3-0.9); MONOCYTES % 16.1 % (0.0-11.0); NEUTROPHIL # 3.2 10^3/ul (1.6-7.5); NEUTROPHILS % 64.8 % (39.0-77.0); PLATELET COUNT 198 10^3/UL (140-415); RED BLOOD COUNT 4.23 10^6/ul (4.70-6.10); WHITE BLOOD COUNT 4.9 10^3/ul (4.8-10.8)
[2017-09-08 17:22] LABS: ADD UMIC YES; UR ASCORBIC ACID 40 mg/dL (NEGATIVE); UR BILIRUBIN (Dip) NEGATIVE (NEGATIVE); UR BLOOD (Dip) NEGATIVE (NEGATIVE); UR CLARITY CLEAR (CLEAR); UR COLOR AMBER (YELLOW); UR GLUCOSE (Dip) NEGATIVE (NEGATIVE); UR KETONES (Dip) NEGATIVE (NEGATIVE); UR LEUKOCYTE ESTERASE (Dip) NEGATIVE Leu/ul (NEGATIVE); UR MUCUS MANY /HPF (NONE SEEN); UR NITRITE (Dip) NEGATIVE (NEGATIVE); UR RBC 0 /HPF (0-5); UR SPECIFIC GRAVITY (Dip) 1.024 (1.003-1.030); UR TOTAL PROTEIN (Dip) 1+ mg/dl (NEGATIVE); UR UROBILINOGEN (Dip) 2+ mg/dL (NEGATIVE)
[2017-09-08 17:25] LABS: INR 1.22; PROTIME 15.5 Sec (12.2-14.2); PT RATIO 1.2
[2017-09-08 17:26] LABS: PARTIAL THROMBOPLASTIN TIME 37.3 Sec (25.0-35.0)
[2017-09-08 17:30] LABS: ALANINE AMINOTRANSFERASE 36 IU/L (13-69); ALBUMIN 3.5 g/dl (3.3-4.9); ALKALINE PHOSPHATASE 338 IU/L (42-121); ANION GAP 13 (8-16); ASPARTATE AMINO TRANSFERASE 106 IU/L (15-46); BILIRUBIN,INDIRECT 0.7 mg/dl (0-1.1); BILIRUBIN,TOTAL 0.7 mg/dl (0.2-1.3); BLOOD UREA NITROGEN 7 mg/dl (7-20); CALCIUM 9.6 mg/dl (8.4-10.2); CARBON DIOXIDE 31 mmol/L (21-31); CHLORIDE 92 mmol/L (97-110); CREATININE 0.45 mg/dl (0.61-1.24); GLUCOSE 138 mg/dl (70-220); SODIUM 132 mmol/L (135-144); TOTAL PROTEIN 8.5 g/dl (6.1-8.1)
--- NOTE | 2017-09-08 17:34 | RADRPT ---
PROCEDURE: Right upper quadrant abdominal ultrasound. CLINICAL INDICATION: Abdominal pain, possible sepsis TECHNIQUE: Bledsoe scale and color doppler ultrasound images of the right upper quadrant of the abdom en. COMPARISON: MRI of the abdomen 09/29/2016 FINDINGS: Pancreas: Not adequately visualized due to overlying bowel gas. Liver: Morphology:Normal in size. 16.6 cm Contour: Not well visualized, probable mild contour nodularity. Echogenicity: Coarsened Focal lesions: Possible 7.5 cm lesion versus extrahepatic lesion in the region of the caudate lobe. Main portal vein: Patent with hepatopetal flow. Biliary System: Gallbladder wall: Thickening is present which is nonspecific in the presence of ascites and hepatic dysfunction. Gallstones: Numerous gallstones are present within the gallbladder. Intrahepatic bile ducts: Normal caliber. Common bile duct diameter (mm): 3.5 Kidneys: Right length (cm) : 11.2 Right cortical thickness: Normal. Echogenicity: Normal. Hydronephrosis: None. Renal calculi: None. Focal lesions: None. Free fluid/ascites: Mild perihepatic ascites. Abdominal aorta: Not visualized by the banking services advisor. Other findings: 15.9 cm mass in the region of the carlota hepatic is enlarged. IMPRESSION: Enlarged mass in the region of the carlota hepatis now measuring at least 15.9 cm. Possible additional lesions within or adjacent to the adjacent liver. These can be better evaluated by CT scan of the a bdomen and pelvis. Coarsened hepatic echotexture compatible suggestive of cirrhosis. Mild ascites. Mild gallbladder wall thickening possibly secondary to ascites/hepatic dysfunction. If clinical conc hang for cholecystitis suggest HIDA scan. Numerous gallstones are present within the gallbladder. Normal caliber intrahepatic and extrahepatic biliary system. RPTAT: AADD .Stan Jean-Baptiste MD, MD Date Time Electronically viewed and signed by .Stan Jean-Baptiste MD, MD on 09/08/2017 17:34 .B/
[2017-09-08 17:42] LABS: TROPONIN-I < 0.012 ng/ml (0.00-0.12)
--- NOTE | 2017-09-08 19:45 | RADRPT ---
PROCEDURE: CT ABDOMEN AND PELVIS WITHOUT CONTRAST CLINICAL INDICATION: 61-year of age, male . Abdominal pain. Possible sepsis. TECHNIQUE: CT of the abdomen and pelvis was performed without intravenous contrast. Oral contrast wa s not administered prior to the examination. Coronal and sagittal reformatted images were obtained from the axial source images. Images were revi ewed on a high-resolution PACS workstation. Dose information: Based on a 32 cm phantom, the estimated radiation dose (CTDIvol mGy) for each seri es in this exam is 13.1. The estimated cumulative dose (DLP mGy-cm) is 753. One or more of the following dose reduction techniques were used: - Automated exposure control. - Adjustment of the mA and/or kV according to patient size. - Use of iterative reconstruction technique. COMPARISON: Gallbladder ultrasound from the same day and MRI September 29, 2016 FINDINGS: In the absence of intravenous contrast, the study constitutes a limited assessment of the solid orga ns, bowel and vessels. LUNG BASES: Linear atelectasis of bilateral lung bases. Small bilateral pleural effusions. Multivess el coronary artery calcification. ABDOMEN/PELVIS: Liver: Liver is nodular in keeping with cirrhosis. There is a 9.9 x 19.2 x 14.5 cm mass in the carlota hepatis that is inseparable from the central liver and caudate lobe on noncontrast CT. Mass also in volves the gastrohepatic ligament and exerts mass effect on the stomach. It is incompletely evaluate d. This mass has increased in size since prior MRI when enlarged carlota hepatis lymph nodes in this l ocation collectively measured 4.1 x 7.1 cm. There is mild hyperdensity within the mass suggesting a calcium. Evaluation of the vasculature is not possible without intravenous contrast. Gallbladder: Multiple calcified stones are present in the collapsed gallbladder. Bile ducts: There is mild dilatation of the left intrahepatic bile ducts without right intrahepatic biliary duct dilatation. Spleen: Normal noncontrast appearance. Mild splenomegaly measuring 13.9 cm in length. Pancreas: Mass in the carlota hepatis contacts the pancreatic body. Remaining pancreas appears normal without dilatation of the pancreatic duct. Adrenal glands: Normal noncontrast appearance. Kidneys and ureters: Normal noncontrast appearance. Negative for urinary calculi or hydronephrosis. Aorta and IVC: Atherosclerotic calcification of aorta and iliac vessels. Negative for abdominal aor tic aneurysm. Suprarenal IVC is flattened by the carlota hepatis mass. SMV is likely encased by the ma ss. Patency of the vasculature cannot be evaluated without intravenous contrast. Lymph nodes: Normal noncontrast appearance. Gastrointestinal tract: Stomach is displaced and narrowed by the mass in the carlota hepatis that also involves the gastrohepatic ligament. Bowel loops are decompressed without obstruction. There is mathew ma in the small bowel mesentery. Appendix: Normal Bladder: Partially filled. Pelvic Organs: Enlarged prostate gland. Calcification of the vas deferens in keeping with diabetes. Peritoneal cavity: Small to moderate volume ascites collects in all 4 quadrants and is increased fr om prior MRI.. Abdominal wall: Small fat containing umbilical hernia. Dystrophic calcifications anterior abdominal wall from prior surgery. BONES: Musculoskeletal: Multilevel degenerative changes in spine and pelvis. Sclerotic bone lesion proximal right femur likely represents a bone island. Thoracic spine DISH . There are subacute healing fract ures of the right posterior tenth and eleventh ribs and the left posterior 10th rib.. No suspicious bone lesions. IMPRESSION: 1. 19.2 cm mass in the carlota hepatis and gastrohepatic ligament that is inseparable from the liver on noncontrast CT has increased in size since prior MRI performed September 29, 2016 and is concerning for primary malignancy or metastatic disease. The mass is incompletely characterized on noncontrast CT. Furthermore, mass compresses the IVC and SMV as well as other vessels and the patency of the va sculature cannot be evaluated. Recommend further evaluation with multi phase enhanced CT or MRI. Tis nilsa may be required for definitive diagnosis. 2. Nodular liver in keeping with cirrhosis. Mild splenomegaly and small to moderate volume ascites a re in keeping with portal venous hypertension. 3. Cholelithiasis. There is dilatation of the left intrahepatic bile ducts likely due to mass effect from the carlota hepatis mass. Negative for dilatation of the gallbladder. 4. Subacute healing fractures of bilateral ribs. RPTAT: HCTS Physician Melia Date Time Electronically viewed and signed by Physician Melia on 09/08/2017 19:45 CS/
[2017-09-08] MEDS ORDERED: CEFEPIME 2GM/50 ML (PMX) 50 ML IVPB STA (20:07)
[2017-09-08 20:30] VITALS: TEMP 98.4
[2017-09-08] MEDS ORDERED: VANCOMYCIN 1 GM (PMX) 250 ML IVPB ONE (20:30)
--- NOTE | 2017-09-08 20:54 | ERA ---
ER Documentation Chief Complaint Date/Time DATE: 09/08/17 TIME: 20:46 Chief Complaint PT BIB RA with c/o AP, vomiting and diarrhea, decreased apetite X 6 days. HPI This is a 61-year-old male who is here complaining of abdominal pain with vomiting and diarrhea. He said he is vomiting some blood today. He has been vomiting for 3 or 4 days. He says vomit looks like dark coffee. He says he does not know if his stools are black or bloody or normal. He says the pain is located throughout the entire abdomen that is described as intermittent and crampy. The patient has some type of abdominal cancer. No chest pain shortness of breath no fever. ROS All systems reviewed and are negative except as per history of present illness. Medications Home Meds Active Scripts Acetaminophen* (Tylophen*) 500 Mg Capsule, 1 CAP PO Q6H Y for PAIN AND OR ELEVATED TEMP, #20 CAP Prov:SARA CORBETT PA-C 07/06/17 Cephalexin* (Keflex*) 500 Mg Capsule, 500 MG PO QID for 7 Days, CAP Prov:SARA CORBETT PA-C 07/06/17 Sulfamethoxazole/Trimethoprim* (Bactrim Ds* Tablet) 1 Each Tablet, 1 TAB PO BID for 7 Days, #14 TAB Prov:SARA CORBETT PA-C 07/06/17 Lactulose* (Cephulac*) 20 Gm/30 Ml Soln, 20 GM PO Q8 for 30 Days, #90 BOT Prov:MANAN PAGE NP 06/23/17 Reported Medications [Nexavar 200MG] No Conflict Check, 400 MG PO Q OTHER DAY 06/22/17 Glimepiride* (Glimepiride*) 4 Mg Tablet, 4 MG PO WITH BREAKFAST, TAB 06/22/17 Gabapentin* (Gabapentin*) 600 Mg Tablet, 600 MG PO TID, #90 TAB 06/22/17 Propranolol Hcl* (Propranolol Hcl*) 10 Mg Tablet, 10 MG PO BID, TAB 09/27/16 Omeprazole* (Omeprazole*) 20 Mg Capsule.dr, 20 MG PO DAILY, #60 CAP 09/27/16 Metformin Hcl* (Metformin Hcl*) 1,000 Mg Tablet, 1000 MG PO WITH BREAKFAST DINNE , #60 TAB 09/27/16 Allergies Allergies: Coded Allergies: No Known Allergy (Verified , 07/06/17) PMhx/Soc History of Surgery: No Anesthesia Reaction: No Hx Neurological Disorder: No Hx Respiratory Disorders: No Hx Cardiac Disorders: No Hx Psychiatric Problems: No Hx Miscellaneous Medical Probl: Yes (liver CA) Hx Alcohol Use: Yes Hx Substance Use: No Hx Tobacco Use: No Smoking Status: Former smoker FmHx Family History: No coronary disease Physical Exam Vitals Vital Signs Date Time Temp Pulse Resp B/P Pulse Ox O2 Delivery O2 Flow Rate FiO2 09/08/17 16:23 142 18 145/97 97 09/08/17 15:38 98.2 146 18 132/98 97 Physical Exam Const: Well-developed, well-nourished Head: Atraumatic, normocephalic Eyes: Normal Conjunctiva, PERRLA, EOMI, normal sclera, no nystagmus ENT: Normal External Ears, Nose and Mouth, moist mucus membranes. Neck: Full range of motion. No meningismus, no lymphadenopathy. Resp: Clear to auscultation bilaterally, no wheezing, rhonchi, rales Cardio: Regular rate and rhythm, no murmurs, S1 S2 present Abd: Soft, mild to moderate diffuse tenderness with some mild distention normal bowel sounds, no guarding or rebound, no pulsitile abdominal masses or bruits Skin: No petechiae or rashes, no ecchymosis , no maculopapular rash Back: No midline or flank tenderness Ext: No cyanosis, or edema, FROM x 4, normal inspection, neurovascularly intact x 4 Neur: Awake and alert, STR 5/5 x 4, sensation intact x 4, no focal findings, cerebellum intact Psych: Normal Mood and Affect Result Diagram: 09/08/17 1650 09/08/17 1650 Results 24 hrs Laboratory Tests Test 09/08/17 16:50 09/08/17 19:30 White Blood Count 4.910^3/ul Red Blood Count 4.2310^6/ul Hemoglobin 13.7g/dl Hematocrit 39.9% Mean Corpuscular Volume 94.3fl Mean Corpuscular Hemoglobin 32.4pg Mean Corpuscular Hemoglobin Concent 34.3g/dl Red Cell Distribution Width 14.0% Platelet Count 70514^3/UL Mean Platelet Volume 9.7fl Neutrophils % 64.8% Lymphocytes % 18.5% Monocytes % 16.1% Eosinophils % 0.2% Basophils % 0.4% Nucleated Red Blood Cells % 0.0/100WBC Neutrophils # 3.210^3/ul Lymphocytes # 0.910^3/ul Monocytes # 0.810^3/ul Eosinophils # 0.010^3/ul Basophils # 0.010^3/ul Nucleated Red Blood Cells # 0.010^3/ul Prothrombin Time 15.5Sec Prothrombin Time Ratio 1.2 INR International Normalized Ratio 1.22 Activated Partial Thromboplast Time 37.3Sec Urine Color KANE Urine Clarity CLEAR Urine pH 5.0 Urine Specific Ogden 1.024 Urine Ketones NEGATIVEmg/dL Urine Nitrite NEGATIVEmg/dL Urine Bilirubin NEGATIVEmg/dL Urine Urobilinogen 2+mg/dL Urine Leukocyte Esterase NEGATIVELeu/ul Urine Microscopic RBC 0/HPF Urine Microscopic WBC 1/HPF Urine Mucus MANY/HPF Urine Hemoglobin NEGATIVEmg/dL Urine Glucose NEGATIVEmg/dL Urine Total Protein 1+mg/dl Sodium Level 132mmol/L Potassium Level 4.0mmol/L Chloride Level 92mmol/L Carbon Dioxide Level 31mmol/L Anion Gap 13 Blood Urea Nitrogen 7mg/dl Creatinine 0.45mg/dl Glucose Level 138mg/dl Lactic Acid Level 2.7mmol/L 2.6mmol/L Calcium Level 9.6mg/dl Total Bilirubin 0.7mg/dl Direct Bilirubin 0.00mg/dl Indirect Bilirubin 0.7mg/dl Aspartate Amino Transf (AST/SGOT) 106IU/L Alanine Aminotransferase (ALT/SGPT) 36IU/L Alkaline Phosphatase 338IU/L Troponin I < 0.012ng/ml Total Protein 8.5g/dl Albumin 3.5g/dl Globulin 5.00g/dl Albumin/Globulin Ratio 0.70 Lipase 62U/L Current Medications Medications (Trade) Dose Ordered Sig/Nilo Route PRN Reason Start Time Stop Time Status Last Admin Dose Admin Sodium Chloride 2140 ml 2,140 ml BOLUS OVER 2 HOURS STAT IV* 09/08/17 16:18 09/08/17 16:27 DC 09/08/17 16:31 Pantoprazole 80 mg/Sodium Chloride 100 ml @ 400 mls/hr ONCE STAT IVPB 09/08/17 16:53 09/08/17 17:07 DC 09/08/17 16:53 Pantoprazole 80 mg/Sodium Chloride 100 ml @ 10 mls/hr ONCE STAT IV 09/08/17 16:53 09/09/17 02:52 09/08/17 19:12 Octreotide Acetate 50 mcg/ Sodium Chloride 26 ml @ 100 mls/hr Q16M STAT IVPB 09/08/17 16:53 09/08/17 17:08 DC 09/08/17 16:53 Octreotide Acetate/Sodium Chloride (Sandostatin/NS) 50 ml @ 5 mls/hr ONCE STAT IV 09/08/17 16:53 09/09/17 02:52 09/08/17 19:13 Ondansetron HCl (Zofran Inj) 4 mg ONCE STAT IV 09/08/17 16:53 09/08/17 16:55 DC 09/08/17 16:53 Hydromorphone HCl 1 mg 1 mg ONCE STAT IV 09/08/17 16:53 09/08/17 16:55 DC 09/08/17 16:53 Cefepime HCl 50 ml @ 100 mls/hr ONCE STAT IVPB 09/08/17 20:07 09/08/17 20:36 DC Vancomycin HCl (Vancocin) 250 ml @ 125 mls/hr ONCE ONCE IVPB 09/08/17 20:30 09/08/17 22:29 Procedures/MDM PROCEDURE: CT ABDOMEN AND PELVIS WITHOUT CONTRAST CLINICAL INDICATION: 61-year of age, male . Abdominal pain. Possible sepsis. TECHNIQUE: CT of the abdomen and pelvis was performed without intravenous contrast. Oral contrast was not administered prior to the examination. Coronal and sagittal reformatted images were obtained from the axial source images. Images were reviewed on a high-resolution PACS workstation. Dose information: Based on a 32 cm phantom, the estimated radiation dose ( CTDIvol mGy) for each series in this exam is 13.1. The estimated cumulative dose (DLP mGy-cm) is 753. One or more of the following dose reduction techniques were used: - Automated exposure control. - Adjustment of the mA and/or kV according to patient size. - Use of iterative reconstruction technique. COMPARISON: Gallbladder ultrasound from the same day and MRI September 29, 2016 FINDINGS: In the absence of intravenous contrast, the study constitutes a limited assessment of the solid organs, bowel and vessels. LUNG BASES: Linear atelectasis of bilateral lung bases. Small bilateral pleural effusions. Multivessel coronary artery calcification. ABDOMEN/PELVIS: Liver: Liver is nodular in keeping with cirrhosis. There is a 9.9 x 19.2 x 14.5 cm mass in the carlota hepatis that is inseparable from the central liver and caudate lobe on noncontrast CT. Mass also involves the gastrohepatic ligament and exerts mass effect on the stomach. It is incompletely evaluated. This mass has increased in size since prior MRI when enlarged carlota hepatis lymph nodes in this location collectively measured 4.1 x 7.1 cm. There is mild hyperdensity within the mass suggesting a calcium. Evaluation of the vasculature is not possible without intravenous contrast. Gallbladder: Multiple calcified stones are present in the collapsed gallbladder. Bile ducts: There is mild dilatation of the left intrahepatic bile ducts without right intrahepatic biliary duct dilatation. Spleen: Normal noncontrast appearance. Mild splenomegaly measuring 13.9 cm in length. Pancreas: Mass in the carlota hepatis contacts the pancreatic body. Remaining pancreas appears normal without dilatation of the pancreatic duct. Adrenal glands: Normal noncontrast appearance. Kidneys and ureters: Normal noncontrast appearance. Negative for urinary calculi or hydronephrosis. Aorta and IVC: Atherosclerotic calcification of aorta and iliac vessels. Negative for abdominal aortic aneurysm. Suprarenal IVC is flattened by the carlota hepatis mass. SMV is likely encased by the mass. Patency of the vasculature cannot be evaluated without intravenous contrast. Lymph nodes: Normal noncontrast appearance. Gastrointestinal tract: Stomach is displaced and narrowed by the mass in the carlota hepatis that also involves the gastrohepatic ligament. Bowel loops are decompressed without obstruction. There is edema in the small bowel mesentery. Appendix: Normal Bladder: Partially filled. Pelvic Organs: Enlarged prostate gland. Calcification of the vas deferens in keeping with diabetes. Peritoneal cavity: Small to moderate volume ascites collects in all 4 quadrants and is increased from prior MRI.. Abdominal wall: Small fat containing umbilical hernia. Dystrophic calcifications anterior abdominal wall from prior surgery. BONES: Musculoskeletal: Multilevel degenerative changes in spine and pelvis. Sclerotic bone lesion proximal right femur likely represents a bone island. Thoracic spine DISH . There are subacute healing fractures of the right posterior tenth and eleventh ribs and the left posterior 10th rib.. No suspicious bone lesions. IMPRESSION: 1. 19.2 cm mass in the carlota hepatis and gastrohepatic ligament that is inseparable from the liver on noncontrast CT has increased in size since prior MRI performed September 29, 2016 and is concerning for primary malignancy or metastatic disease. The mass is incompletely characterized on noncontrast CT. Furthermore, mass compresses the IVC and SMV as well as other vessels and the patency of the vasculature cannot be evaluated. Recommend further evaluation with multi phase enhanced CT or MRI. Tissue may be required for definitive diagnosis. 2. Nodular liver in keeping with cirrhosis. Mild splenomegaly and small to moderate volume ascites are in keeping with portal venous hypertension. 3. Cholelithiasis. There is dilatation of the left intrahepatic bile ducts likely due to mass effect from the carlota hepatis mass. Negative for dilatation of the gallbladder. 4. Subacute healing fractures of bilateral ribs. RPTAT: HCTS Physician Melia Date Time Electronically viewed and signed by Ashley Barrera Physician on 09/08/2017 19: 45 PROCEDURE: Right upper quadrant abdominal ultrasound. CLINICAL INDICATION: Abdominal pain, possible sepsis TECHNIQUE: Bledsoe scale and color doppler ultrasound images of the right upper quadrant of the abdomen. COMPARISON: MRI of the abdomen 09/29/2016 FINDINGS: Pancreas: Not adequately visualized due to overlying bowel gas. Liver: Morphology:Normal in size. 16.6 cm Contour: Not well visualized, probable mild contour nodularity. Echogenicity: Coarsened Focal lesions: Possible 7.5 cm lesion versus extrahepatic lesion in the region of the caudate lobe. Main portal vein: Patent with hepatopetal flow. Biliary System: Gallbladder wall: Thickening is present which is nonspecific in the presence of ascites and hepatic dysfunction. Gallstones: Numerous gallstones are present within the gallbladder. Intrahepatic bile ducts: Normal caliber. Common bile duct diameter (mm): 3.5 Kidneys: Right length (cm) : 11.2 Right cortical thickness: Normal. Echogenicity: Normal. Hydronephrosis: None. Renal calculi: None. Focal lesions: None. Free fluid/ascites: Mild perihepatic ascites. Abdominal aorta: Not visualized by the primary substance abuse counselor. Other findings: 15.9 cm mass in the region of the carlota hepatic is enlarged. IMPRESSION: Enlarged mass in the region of the carlota hepatis now measuring at least 15.9 cm. Possible additional lesions within or adjacent to the adjacent liver. These can be better evaluated by CT scan of the abdomen and pelvis. Coarsened hepatic echotexture compatible suggestive of cirrhosis. Mild ascites. Mild gallbladder wall thickening possibly secondary to ascites/hepatic dysfunction. If clinical concern for cholecystitis suggest HIDA scan. Numerous gallstones are present within the gallbladder. Normal caliber intrahepatic and extrahepatic biliary system. RPTAT: AADD .Stan Jean-Baptiste MD, MD Date Time Electronically viewed and signed by .Stan Jean-Baptiste MD, MD on 09/08/2017 17:34 .B/ CC: GERARDO WEBSTER DO Patient has elevated lactate and do not feel is from sepsis. Patient does not meet sepsis criteria and his labs were ordered for my patient visit before I saw the patient by another physician. The patient did receive sepsis fluid protocol fluids We will admit the patient for IV fluids, GI consult with endoscopy. The patient was started on octreotide drip and Protonix drips. Patient likely has some esophageal varices due to this liver mass that is encroaching on the liver and vasculature causing some dilation of veins. Critical Care Time: 30 minutes Treatments/Evaluations: Close monitoring and treatment of unstable vital signs, cardiorespiratory, and neurologic status, while maintaining tight balance of fluid, respiratory, and cardiac interventions. This time includes discussing the case with the patient and the patient's family. This time does not include all procedures stated elsewhere in this record. This time also includes reviewing old records, labs and radiological studies. This time includes examining and re-examining the patient. Additionally, this time also includes arranging care with admitting and consulting physicians. Departure Diagnosis: Primary Impression: Hematemesis Qualified Code: K92.0 - Hematemesis with nausea Additional Impressions: Vomiting and diarrhea Abdominal pain Qualified Code: R10.84 - Generalized abdominal pain Condition: Stable BAYLEE FRYE DO Sep 08, 2017 20:54
[2017-09-08] MEDS ORDERED: SOD CHLORIDE 0.9% 1,000 ML IV SCH (21:20)
--- NOTE | 2017-09-08 21:28 | RADRPT ---
PROCEDURE: Portable chest x-ray. CLINICAL INDICATION: 61-year of age, male. NG placement. TECHNIQUE: Portable AP view of the chest. COMPARISON: Chest x-ray from earlier the same day FINDINGS: In the interval, enteric tube has been placed and is coiled back on itself in the esophagus. The dis marla tip is in the mid esophagus. Cardiomediastinal contours are normal. Mild bilateral dependent atelectasis. Lungs are otherwise clear. Negative for pleural effusion or pneumothorax. IMPRESSION: Enteric tube is coiled in the esophagus and is not in the stomach. Recommend repositioning. Chest is otherwise unchanged with bilateral dependent atelectasis. RPTAT: HCTS Physician Melia Date Time Electronically viewed and signed by Physician Melia on 09/08/2017 21:27 /
[2017-09-08] MEDS ORDERED: ONDANSETRON 4 MG INJ IV PRN (21:30)
[2017-09-08] MEDS ORDERED: ACETAMINOPHEN 325 MG TAB PO PRN (21:30)
[2017-09-08 23:01] VITALS: PULSE 89
[2017-09-09] VITALS (12 sets, daily range): BP systolic 113–133; BP diastolic 66–92; PULSE 82–155; RESP 18–20
[2017-09-09] MEDS ORDERED: morphine 4 MG/ML VIAL IV PRN (00:30)
[2017-09-09] MEDS ORDERED: ONDANSETRON 4 MG INJ IV PRN (00:30)
[2017-09-09] MEDS: DEXTROSE 5%-0.45% NACL 1,000 ML IV SCH ×3 (00:30→23:18)
[2017-09-09] MEDS ORDERED: VANCOMYCIN 1 GM in NS 250 ML IVPB ONE (02:45)
[2017-09-09] MEDS: PANTOPRAZOLE IV 80 MG in SOD CHLORIDE 0.9% 100 ML IVPB SCH ×4 (03:00→23:17)
[2017-09-09] MEDS: OCTREOTIDE IV SCH ×2 (03:00→23:20)
[2017-09-09] MEDS: NS IV SCH ×2 (03:00→23:20)
--- NOTE | 2017-09-09 07:16 | HP ---
Date/Time of Note Date/Time of Note DATE: 09/09/17 TIME: 07:03 Assessment/Plan VTE Prophylaxis VTE Prophylaxis Intervention: SCD's Lines/Catheters IV [facility]ter [facility]from [facility] Peripheral IV Urinary Cath still in place: No Assessment/Plan Assessment/Plan 1. Vomiting with probable upper GI bleed - vomiting occurs after po intake. Imaging showed no obstruction. Will place GI consult for EGD -PPI -Monitor H&H -Notes that patient had an EGD here in 2015 which showed ulcerated esophagitis and gastritis but no esophageal varices. 2. HCC, s/p chemoembolization -Will follow-up with oncologist as outpatient. If lengthy hospitalization, will place an oncology consult in-house 3. Abdominal pain, most likely secondary to above -Pain management for now -Patient is to be seen by GI for possible hematemesis, so they can comment on this as well so will follow up on recommendation -Patient was mild to moderate ascites, will consider paracentesis 4. History of type 2 diabetes -Insulin while in-house 5. History of esophagitis/gastritis -PPI 6. Lactic acidosis -No clear etiology for this -will trend for now -Follow-up culture results -IV fluid HPI/ROS Admit Date/Time Admit Date/Time Sep 08, 2017 at 21:22 Hx of Present Illness This is a 61-year-old male with a history of HCC s/p chemoembolization, alcohol abuse, type 2 diabetes, gastritis, GI bleed who presented to the ER complaining of diffuse abdominal pain and nausea/vomiting. He described emesis to the ER Doctor as coffee colored/dark. On my questioning, he denied. However, he said that he has been having NBNB emesis right after almost po intake. As a result, he has not been eating fearing vomiting. When he presented to the ER, his vitals were stable. Labs shows a hemoglobin of 13.7, lactate 2.7 which trended up to 3, sodium 132, ALT 106, alk phos 338. Abdominal ultrasound showed numerous gallstones with mild thickening secondary to ascites and hepatic dysfunction. CT abdomen/pelvis showed liver mass, which increased in size compared to the MRI from 2015. Also seen is mild to moderate ascites and cholelithiasis. Patient had a 2D echo here in 2015 which showed ulcerated esophagitis and gastritis but no esophageal varices. PMH/Family/Social Past Surgical History Past Surgical Hx: other Social History Smoking Status: Former smoker Exam/Review of Systems Vital Signs Vitals Vital Signs Date Time Temp Pulse Resp B/P Pulse Ox O2 Delivery O2 Flow Rate FiO2 09/09/17 04:10 91 09/09/17 04:00 97.9 19 124/89 98 09/08/17 20:30 Room Air Intake and Output 09/08/17 09/08/17 09/09/17 15:00 23:00 07:00 Intake Total 440 ml Balance 440 ml Exam Constitutional: alert, oriented, well developed Head: atraumatic, normocephalic Eyes: EOMI, PERRL Respiratory: clear to auscultation, normal air movement Cardiovascular: nl pulses, regular rate and rhythm Gastrointestinal: other (there is a palpable area in mid abdomen), soft, tender Extremities: normal pulses Labs Result Diagram: 09/08/17 1650 09/08/17 1650 Medications Medications Current Medications Dextrose/Sodium Chloride (D5-1/2ns) 1,000 ml @ 80 mls/hr [id number] IV Last administered on 09/09/17 03:00; Admin Dose 80 MLS/HR; Start 09/09/17 at 00:30 Ondansetron HCl (Zofran Inj) 4 mg Q6H PRN IV NAUSEA AND/OR VOMITING; Start at 00:30 Morphine Sulfate 4 mg 4 mg Q4H PRN IV PAIN Last administered on 09/09/17 03: 30; Admin Dose 4 MG; Start 09/09/17 at 00:30 Pantoprazole 80 mg/Sodium Chloride 100 ml @ 10 mls/hr Q10H IVPB Last administered on 09/09/17 03:00; Admin Dose 10 MLS/HR; Start 09/09/17 at 03:00 Octreotide Acetate/Sodium Chloride (Sandostatin/NS) 100 ml @ 5 mls/hr Q20H IV Last administered on 09/09/17 03:00; Admin Dose 5 MLS/HR; Start 09/09/17 at 03:00 SANIYA FERRIS MD Sep 09, 2017 07:14
[2017-09-09] MEDS: oxyCODONE 5 MG TAB PO PRN ×3 (12:43→23:08)
[2017-09-10] VITALS (9 sets, daily range): BP systolic 132–139; BP diastolic 84–92; PULSE 61–102; RESP 17–18
[2017-09-10 08:26] LABS: ABNORMAL IP MESSAGE 1; BASOPHILS % 0.5 % (0.0-2.0); EOSINOPHILS % 0.8 % (0.0-7.0); HEMATOCRIT 38.5 % (42.0-52.0); HEMOGLOBIN 12.7 g/dl (14.0-18.0); LYMPHOCYTES # 0.6 10^3/ul (0.8-2.9); LYMPHOCYTES % 15.2 % (15.0-51.0); MEAN PLATELET VOLUME 9.5 fl (7.4-10.4); MONOCYTE # 0.7 10^3/ul (0.3-0.9); MONOCYTES % 18.2 % (0.0-11.0); NEUTROPHIL # 2.4 10^3/ul (1.6-7.5); PLATELET COUNT 145 10^3/UL (140-415); POSITIVE DIFF @See below; RED BLOOD COUNT 3.97 10^6/ul (4.70-6.10); WHITE BLOOD COUNT 3.7 10^3/ul (4.8-10.8)
[2017-09-10 08:52] LABS: CALCIUM 8.9 mg/dl (8.4-10.2); CREATININE 0.53 mg/dl (0.61-1.24); MAGNESIUM 1.5 mg/dl (1.7-2.5); POTASSIUM 4.3 mmol/L (3.5-5.1)
[2017-09-10] MEDS: DEXTROSE 5%-0.45% NACL 1,000 ML IV SCH (09:03)
[2017-09-10] MEDS: oxyCODONE 5 MG TAB PO PRN (11:37)
[2017-09-10] MEDS: PANTOPRAZOLE IV 80 MG in SOD CHLORIDE 0.9% 100 ML IVPB SCH (14:32)
[2017-09-10] MEDS ORDERED: MAGNESIUM SULFATE 3 GM in SOD CHLORIDE 0.9% 100 ML IVPB ONE (15:00)
[2017-09-10] MEDS ORDERED: TRAM50TA2 PO (16:04)
--- NOTE | 2017-09-10 16:05 | PDOCDIS ---
Discharge Instructions CONDITION Patient Condition: Good HOME CARE INSTRUCTIONS: Diet Instructions: Regular ACTIVITY: Activity Restrictions: No Restrictions FOLLOW UP/APPOINTMENTS Follow-up Plan F/U WITH YOUR ONCOLOGIST SCHEDULED, F/U WITH YOUR PCP IN 1-2 WEEKS DAISY WILKINSON Sep 10, 2017 16:05
--- NOTE | 2017-09-10 18:28 | DS ---
Date/Time of Note Date/Time of Note DATE: 09/10/17 TIME: 18:22 Discharge Summary Admission/Discharge Info Admit Date/Time Sep 08, 2017 at 21:22 Discharge Date/Time September 10, 2017 Discharge Diagnosis 1. Abdominal pain with nausea vomiting secondary to known hepatocellular carcinoma Patient denies any GI bleeding, hemoglobin is stable Patient discharged with pain medications and is to follow-up with his oncologist CT abdomen does show increased size of hepatocellular carcinoma, patient was told about these findings Of note patient does have a history of chemoembolization 2. History of type 2 diabetes Continue home meds 3. History of esophagitis/gastritis Continue PPI 4. Lactic acidosis likely secondary to underlying malignancy-resolved No evidence of infection Hospital Course Patient is a 61-year-old male with a history of HCC s/p chemoembolization, alcohol abuse, type 2 diabetes, gastritis, GI bleed who presented to the ER complaining of diffuse abdominal pain and nausea/vomiting. Patient denies any significant GI bleeding to myself and his H&H were stable. Patient had no further nausea vomiting during hospitalization but did have right upper quadrant abdominal pain secondary to his known hepatocellular carcinoma. CT abdomen did show increased size of the malignancy, patient states that he is scheduled to get a PET scan in the near future and does follow-up with an oncologist at [facility]. Patient had no pain medication at home and was told that he will be given new medication for his pain. Patient had no further nausea vomiting on day of discharge, the day of discharge his vitals labs and physical exam are stable he had no further acute complaints and questions were answered. Home Meds Active Scripts Tramadol HCl (Tramadol HCl) 50 Mg Tablet, 50 MG PO Q6H Y for PAIN, #60 TAB 1 Refill Prov:DAISY WILKINSON 09/10/17 Acetaminophen* (Tylophen*) 500 Mg Capsule, 1 CAP PO Q6H Y for PAIN AND OR ELEVATED TEMP, #20 CAP Prov:SARA CORBETT PA-C 07/06/17 Cephalexin* (Keflex*) 500 Mg Capsule, 500 MG PO QID for 7 Days, CAP Prov:SARA CORBETT-Heraclio 07/06/17 Sulfamethoxazole/Trimethoprim* (Bactrim Ds* Tablet) 1 Each Tablet, 1 TAB PO BID for 7 Days, #14 TAB Prov:SARA CORBETT-Heraclio 07/06/17 Lactulose* (Cephulac*) 20 Gm/30 Ml Soln, 20 GM PO Q8 for 30 Days, #90 BOT Prov:MANAN PAGE FOLDER OPERATOR 06/23/17 Reported Medications [Nexavar 200MG] No Conflict Check, 400 MG PO Q OTHER DAY 06/22/17 Glimepiride* (Glimepiride*) 4 Mg Tablet, 4 MG PO WITH BREAKFAST, TAB 06/22/17 Gabapentin* (Gabapentin*) 600 Mg Tablet, 600 MG PO TID, #90 TAB 06/22/17 Propranolol Hcl* (Propranolol Hcl*) 10 Mg Tablet, 10 MG PO BID, TAB 09/27/16 Omeprazole* (Omeprazole*) 20 Mg Capsule.dr, 20 MG PO DAILY, #60 CAP 09/27/16 Metformin Hcl* (Metformin Hcl*) 1,000 Mg Tablet, 1000 MG PO WITH BREAKFAST DINNE , #60 TAB 09/27/16 Follow-up Plan F/U WITH YOUR ONCOLOGIST SCHEDULED, F/U WITH YOUR PCP IN 1-2 WEEKS Primary Care Provider [facility] Time spent on discharge: > 30 minutes DAISY WILKINSON Sep 10, 2017 18:27
== END 2017-09-10 18:22 | disposition home or self-care (01) | DRG 378 ==
LOC: E/R 15:16 → MS4 21:22
PROVIDERS: ADMIT Internal Medicine; ATTEND Internal Medicine
DX: K92.2 Gastrointestinal hemorrhage, unspecified (principal); C22.0 Liver cell carcinoma; E87.2 Acidosis; F10.20 Alcohol dependence, uncomplicated; R10.9 Unspecified abdominal pain
CPT/HCPCS: 71010; 74176; 76705; 80048; 80053; 81001; 83605; 83690; 83735; 84100; 84484; 85025; 85610; 85730; 86850; 86900; 86901; 87040; 87086; C9113; J0692; J1170; J2270; J2354; J2405; J3370; J3475; J7030; J7042